=== PATIENT | male | born 1960 | race Two or more races ===

== ENCOUNTER 2024-01-07 19:09 | Emergency (ER) | payer MEDICAID, OTHER ==
[~2024-01-07] VITALS: Ht 167.6 cm; Wt 68.0 kg
[2024-01-07 19:13] VITALS: BP 163/77; RESP 20; O2SAT 100
[2024-01-07 19:52] VITALS: PULSE 88
[2024-01-07 20:05] LABS: Basophils # (auto) 0.1 10 ^3/uL (0-0.2); Basophils % (auto) 0.5 % (0.0-2.0); Eosinophils # (auto) 0 10 ^3/uL (0-0.8); Eosinophils % (auto) 0.1 % (0.0-7.0); Hematocrit 43.5 % (41.0-53.0); Hemoglobin 14.4 g/dL (13.5-17.5); Lymphocytes # (auto) 0.9 10 ^3/uL (0.4-5.4); Lymphocytes % (auto) 5.6 % (10.0-50.0); Mean Corpuscular Hemoglobin 29.7 pg (28.0-32.0); Mean Corpuscular Hgb Conc. 33.2 g/dL (32.0-36.0); Mean Corpuscular Volume 89.3 fL (80.0-100.0); Monocytes # (auto) 0.7 10 ^3/uL (0-1.3); Monocytes % (auto) 4.5 % (0.0-12.0); Neutrophils # (auto) 14.5 10 ^3/uL (1.6-8.6); Neutrophils % (auto) 89.3 % (37.0-80.0); Red Blood Cells 4.87 10^6/uL (4.5-5.90); Red Cell Distribution Width 13.4 % (11.8-14.3); White Blood Cell 16.3 10^3/uL (4.4-10.8)
[2024-01-07] MEDS: ONDANSETRON HCL 4 MG/2 ML VIAL IM ONE (20:06)
[2024-01-07] MEDS: METOCLOPRAMIDE HCL 5MG/ml INJ 2ml VIAL IM ONE (20:06)
[2024-01-07] MEDS: DICYCLOMINE HCL (10MG/ML) 2 ML AMPULE IM ONE (20:06)
[2024-01-07 20:13] LABS: Chloride 106 mmol/L (98-107); Potassium 4.2 mmol/L (3.5-5.1); Sodium 140 mmol/L (136-145)
[2024-01-07 20:14] LABS: Anion Gap 12 (5-15); Calcium 9.9 mg/dL (8.7-10.4); Carbon Dioxide 22 mmol/L (20-30)
[2024-01-07 20:19] LABS: BUN/Creatinine Ratio 11.7 (10.0-20.0); Blood Urea Nitrogen 12 mg/dL (9-23); Glucose 203 mg/dL (74-106); Lipase 31 U/L (12-53)
[2024-01-07 20:48] LABS: Urine Bacteria NONE SEEN /hpf (None Seen); Urine Blood TRACE /uL (Negative); Urine Clarity Clear (Clear); Urine Color Yellow (Yellow); Urine Mucus FEW (None Seen); Urine Protein, UAD 1+ (Negative); Urine Specific Gravity 1.022 (1.001-1.035); Urine Urobilinogen Normal (Negative); Urine WBC 1 /hpf (0 - 3); Urine pH 7.5 (5.0-8.0)
[2024-01-07] MEDS ORDERED: METO-281 PO (22:33)
[2024-01-07] MEDS ORDERED: DICY10CA PO (22:33)
[2024-01-07] MEDS ORDERED: ZOFR4T PO (22:33)
== END 2024-01-07 23:19 | disposition home or self-care (01) ==
LOC: ER 19:09
DX: K52.9 Noninfective gastroenteritis and colitis, unspecified (principal)
CPT/HCPCS: 36415; 80048; 81001; 83690; 83880; 85025; 93005; 96372; 99284; J0500; J2405; J2765